=== PATIENT | male | born 1965 | race African-American/Black ===

== ENCOUNTER 2018-09-20 09:34 | Inpatient (IN) | payer BC, OTHER ==
[2018-09-20 10:06] VITALS: BMI 26.4
--- NOTE | 2018-09-20 10:08 | HP ---
COWS - Scale Resting Pulse: 0= [place] 80 or Below Sweatin= Chills/Flushing Restless Observation: 1= Difficult to Sit Still Pupil Size: 1= Pupils >than Normal Bone or Joint Aches: 2= Severe Diffuse Aches Runny Nose/ Eye Tearin= Runny Nose/Eyes GI Upset > 30mins: 2= Nausea/Diarrhea Tremor Observation: 2= Slight Tremor Visible Yawning Observation: 1= 1-2x During Session Anxiety or Irritability: 2=Irritable/Anxious Goose Flesh Skin: 0=Smooth Skin COWS Score: 14 CIWA Score Nausea/Vomitin Muscle Tremors: 2 Anxiety: 2 Agitation: 2 Paroxysmal Sweats: 1-Minimal Palms Moist Orientation: 0-Oriented Tacttile Disturbances: 1-Very Mild Itch/Numbness Auditory Disturbances: 1-Very Mild Visual Disturbances: 1-Very Mild Sensitivity Headache: 2-Mild CIWA-Ar Total Score: 14 - Admission Criteria [facility] Guidelines: Admission for Medically Managed Detox: Requires at least one of the followin. CIWA greater than 12 2. Seizures within the past 24 hours 3. Delirium tremens within the past 24 hours 4. Hallucinations within the past 24 hours 5. Acute intervention needed for co occurring medical disorder 6. Acute intervention needed for co occurring psychiatric disorder 7. Severe withdrawal that cannot be handled at a lower level of care (continued vomiting, continued diarrhea, abnormal vital signs) requiring intravenous medication and/or fluids 8. Patient presents the following: CIWA greater than 12 Admission Criteria Met: Admission criteria met Admission ROS S - HPI Chief Complaint: i need help to clean up my left from drug and alcohol Allergies/Adverse Reactions: Allergies Allergy/AdvReac Type Severity Reaction Status Date / Time No Known Allergies Allergy Verified 09/20/18 09:57 History of Present Illness: this 53 years old male with heroin,alcohol dependence,seeking detox,withdrawal symptom,never been in detox before syncope alcohol related weight loss nicotine dependence hypertension,not on medication stated need help to change his life Exam Limitations: No Limitations - Ebola screening Have you traveled outside of the country in the last 21 days: No Have you had contact with anyone from an Ebola affected area: No Do you have a fever: No - Review of Systems Constitutional: Chills, Loss of Appetite, Malaise, Night Sweats, Changes in sleep, Weakness EENT: reports: Tearing, Nose Congestion Respiratory: reports: No Symptoms reported Cardiac: reports: Palpitations GI: reports: Nausea, Poor Appetite, Abdominal cramping : reports: No Symptoms Reported Musculoskeletal: reports: Back Pain, Joint Pain, Muscle Pain, Joint Stiffness Integumentary: reports: Dryness Endocrine: reports: No Symptoms Reported Hematology: reports: No Symptoms Reported Psychiatric: reports: No Sypmtoms Reported, Judgement Intact, Mood/Affect Appropiate, Orientated x3 Patient History - Patient Medical History Hx Anemia: No Hx Asthma: No Hx Chronic Obstructive Pulmonary Disease (COPD): No Hx Cancer: No Hx Cardiac Disorders: No Hx Congestive Heart Failure: No Hx Hypertension: No Hx Hypercholesterolemia: No Hx Pacemaker: No HX Cerebrovascular Accident: No Hx Seizures: No Hx Dementia: No Hx Diabetes: No Hx Gastrointestinal Disorders: No Hx Liver Disease: No Hx Genitourinary Disorders: No Hx Sexually Transmitted Disorders: No Hx Renal Disease (ESRD): No Hx Thyroid Disease: No Hx Human Immunodeficiency Virus (HIV): No (last 06/24 negative) Hx Hepatitis C: No Hx Depression: No Hx Suicide Attempt: No Hx Bipolar Disorder: No Hx Schizophrenia: No Other Medical History: no suicidal,no homicidal - Patient Surgical History Past Surgical History: No - PPD History Previous Implant?: Yes Documented Results: Negative w/o proof Implanted On Prior [facility] Admission?: No PPD to be Administered?: Yes - Smoking Cessation Smoking history: Current every day smoker Have you smoked in the past 12 months: Yes Aproximately how many cigarettes per day: 5 Cigars Per Day: 0 Hx Chewing Tobacco Use: No Initiated information on smoking cessation: Yes 'Breaking Loose' booklet given: 09/20/18 - Substance & Tx. History Hx Alcohol Use: Yes Hx Substance Use: Yes Substance Use Type: Alcohol, Cocaine, Heroin Hx Substance Use Treatment: No - Substances Abused Heroin Route: Inhalation Frequency: Daily Amount used: 8 BAGS DAILY Age of first use: 45 Date of Last Use: 09/19/18 Crack Route: Smoking Frequency: Daily Amount used: 1 GRAM Age of first use: 45 Date of Last Use: 09/19/18 Alcohol Route: Oral Frequency: Daily Amount used: 2 CANS OF BEER (24 OUNCES) Age of first use: 15 Date of Last Use: 09/19/18 Family Disease History - Family Disease History Family Disease History: Other: Father (dsa,alcohol,), Mother (dsa, alcohol,), Sister (dsa,alcohol) Admission Physical Exam [facility] - Vital Signs Vital Signs: Vital Signs Temperature 98 F 09/20/18 10:04 Pulse Rate 70 09/20/18 10:04 Respiratory Rate 18 09/20/18 10:04 Blood Pressure 150/94 09/20/18 10:04 O2 Sat by Pulse Oximetry (%) - Physical General Appearance: Yes: Moderate Distress, Tremorous, Irritable, Sweating, Anxious HEENTM: Yes: Normal ENT Inspection, EVY, Pharynx Normal Respiratory: Yes: Lungs Clear, Normal Breath Sounds, No Respiratory Distress Neck: Yes: Within Normal Limits, Supple, Trachea in good position Breast: Yes: Within Normal Limits Cardiology: Yes: Within Normal Limits, Regular Rhythm, Regular Rate, S1, S2 Abdominal: Yes: Within Normal Limits, Normal Bowel Sounds, Non Tender, Flat, Soft Genitourinary: Yes: Within Normal Limits Back: Yes: Muscle Spasm Musculoskeletal: Yes: full range of Motion, Back pain, Joint Stiffness, Muscle Pain Extremities: Yes: Normal Range of Motion, Tremors Neurological: Yes: Within Normal Limits, 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, Fully Oriented, Alert, Motor Strength 5/5 Integumentary: Yes: Dry Lymphatic: Yes: Within Normal Limits - Diagnostic (1) Opioid dependence with withdrawal Current Visit: Yes Status: Acute (2) Alcohol dependence with uncomplicated withdrawal Current Visit: Yes Status: Acute (3) Cocaine dependence Current Visit: Yes Status: Acute (4) Weight loss Current Visit: Yes Status: Acute (5) Nicotine dependence Current Visit: Yes Status: Acute Cleared for Admission [facility] - Detox or Rehab [facility] Level of Care: Medically Managed Detox Regimen/Protocol: Methadone/Librium
[2018-09-20] MEDS ORDERED: chlordiazePOXIDE HCL 25 MG CAPSULE PO PRN (10:21)
[2018-09-20] MEDS ORDERED: MENTHOL/PHENOL 1 EACH UD MM PRN (10:21)
[2018-09-20] MEDS ORDERED: ACETAMINOPHEN 325 MG TABLET (FP) PO PRN (10:21)
[2018-09-20] MEDS ORDERED: P-EPHED 60MG/TRIPROLIDI 2.5MG TABLET PO PRN (10:21)
[2018-09-20] MEDS ORDERED: MAGNESIUM CITRATE 300 ML BOTTLE PO PRN (10:21)
[2018-09-20] MEDS ORDERED: guaiFENesin/D-METHORPHAN HB 10 ML UNIT-DOSE CUPS PO PRN (10:21)
[2018-09-20] MEDS ORDERED: IBUPROFEN 400 MG TABLET (FP) PO PRN (10:21)
[2018-09-20] MEDS ORDERED: MAGNESIUM HYDROX 2400MG/30ML ORAL SUSPENSION 30 ML CUP PO PRN (10:21)
[2018-09-20] MEDS ORDERED: LOPERAMIDE HCL 2 MG CAPSULE PO PRN (10:21)
[2018-09-20] MEDS ORDERED: MAG HYDROX/AL HYDROX/SIMETH 30 ML UNIT-DOSE CUP PO PRN (10:21)
[2018-09-20] MEDS ORDERED: METHADONE HCL 10 MG TABLET (FOR DETOX USE ONLY) PO ONE ×2 (10:55→23:00)
[2018-09-20] MEDS: chlordiazePOXIDE HCL 25 MG CAPSULE PO SCH ×2 (17:29→22:25)
[2018-09-20 17:36] LABS: URINE APPEARANCE CLEAR; URINE BILIRUBIN NEGATIVE (<2.0 mg/dL); URINE COLOR YELLOW; URINE GLUCOSE (UA) NEGATIVE (NEGATIVE); URINE KETONE NEGATIVE (NEGATIVE); URINE LEUK ESTERASE NEGATIVE (NEGATIVE); URINE NITRITE NEGATIVE (NEGATIVE); URINE PROTEIN NEGATIVE (NEGATIVE)
[2018-09-20] MEDS ORDERED: MELATONIN 5 MG TABLETS PO PRN (22:00)
[2018-09-20] MEDS: cloNIDine HCL 0.1 MG TABLET PO SCH (22:26)
[2018-09-20] MEDS: THIAMINE HCL 100 MG TABLET (FP) PO SCH (22:26)
[2018-09-20] MEDS: CYCLOBENZAPRINE HCL 10 MG TABLET (FP) PO PRN (22:26)
[2018-09-21] MEDS: chlordiazePOXIDE HCL 25 MG CAPSULE PO SCH ×4 (06:34→22:31)
[2018-09-21] MEDS ORDERED: METHADONE HCL 10 MG TABLET (FOR DETOX USE ONLY) PO SCH (10:00)
[2018-09-21] MEDS: PRENATAL VITAMINS W/ FOLIC ACID TABLET (FP) PO SCH (10:09)
[2018-09-21] MEDS: cloNIDine HCL 0.1 MG TABLET PO SCH ×2 (10:10→22:31)
[2018-09-21 10:15] LABS: HEMATOCRIT 42.8 % (35.4-49); MCH 30.4 pg (25.7-33.7); MCHC 32.7 g/dl (32.0-35.9); MEAN CELL VOLUME 92.8 fl (80-96); MEAN PLT VOLUME 8.5 fl (7.5-11.1); PLATELET COUNT 266 K/MM3 (134-434); RBC 4.61 M/mm3 (4.00-5.60); RDW 13.8 % (11.9-15.9); WHITE BLOOD COUNT 4.8 K/mm3 (4.0-10.0)
[2018-09-21 10:59] LABS: ALBUMIN 3.5 g/dl (3.4-5.0); ALK PHOS 61 U/L (45-117); ANION GAP 10 MMOL/L (8-16); BILIRUBIN,TOTAL 0.9 mg/dL (0.2-1); BLOOD UREA NITROGEN 12 mg/dL (7-18); CALCIUM 8.6 mg/dL (8.5-10.1); CHLORIDE 107 mmol/L (98-107); CO2 26 mmol/L (21-32); CREATININE 0.8 mg/dL (0.55-1.3); GLUCOSE,RANDOM 106 mg/dL (74-106); POTASSIUM 3.9 mmol/L (3.5-5.1); SGOT/AST 22 U/L (15-37); SGPT/ALT 62 U/L (13-61); SODIUM 144 mmol/L (136-145); TOT PROT 7.1 g/dl (6.4-8.2)
--- NOTE | 2018-09-21 11:56 | EKG ---
Test Reason : Blood Pressure : / mmHG Vent. Rate : 071 BPM Atrial Rate : 071 BPM P-R Int : 162 ms QRS Dur : 118 ms QT Int : 384 ms P-R-T Axes : 065 063 039 degrees QTc Int : 417 ms NORMAL SINUS RHYTHM NON-SPECIFIC INTRA-VENTRICULAR CONDUCTION DELAY BORDERLINE ECG NO PREVIOUS ECGS AVAILABLE Confirmed by SHEREEN MILIAN MD ([id number]) on 09/21/2018 11:55:54 AM Referred By: Confirmed By:SHEREEN MILIAN MD
--- NOTE | 2018-09-21 12:12 | PN ---
[facility] CIWA - CIWA Score Nausea/Vomitin Muscle Tremors: 4-Moderate,w/Arms Extend Anxiety: 4-Mod. Anxious/Guarded Agitation: 4-Moderately Restless Paroxysmal Sweats: 3 Orientation: 0-Oriented Tacttile Disturbances: 0-None Auditory Disturbances: 0-None Visual Disturbances: 0-None Headache: 0-None Present CIWA-Ar Total Score: 17 S COWS - Scale Resting Pulse: 1= [place] 81-100 Sweatin= Chills/Flushing Restless Observation: 3= Extraneous Movement Pupil Size: 0= Normal to Room Light Bone or Joint Aches: 2= Severe Diffuse Aches Runny Nose/ Eye Tearin= Runny Nose/Eyes GI Upset > 30mins: 2= Nausea/Diarrhea Tremor Observation of Outstretched Hands: 2= Slight Tremor Visible Yawning Observation: 1= 1-2x During Session Anxiety or Irritability: 2=Irritable/Anxious Goose Flesh Skin: 0=Smooth Skin COWS Score: 16 [facility] Progress Note (SOAP) Subjective: Sweating, body ache, diarrhea, chills, interrupted sleep Objective: 09/21/18 12:11 Last Vital Signs Temp Pulse Resp BP Pulse Ox 97.2 F L 100 H 18 114/76 09/21/18 09:11 09/21/18 09:11 09/21/18 09:11 09/21/18 09:11 Laboratory Tests 09/20/18 09/21/18 09/21/18 15:43 05:50 05:50 WBC 4.8 RBC 4.61 Hgb 14.0 Hct 42.8 MCV 92.8 MCH 30.4 MCHC 32.7 RDW 13.8 Plt Count 266 MPV 8.5 Sodium 144 Potassium 3.9 Chloride 107 Carbon Dioxide 26 Anion Gap 10 BUN 12 Creatinine 0.8 Creat Clearance w eGFR > 60 Random Glucose 106 Calcium 8.6 Total Bilirubin 0.9 AST 22 ALT 62 H Alkaline Phosphatase 61 Total Protein 7.1 Albumin 3.5 Urine Color Yellow Urine Appearance Clear Urine pH 7.0 Ur Specific [place] 1.025 Urine Protein Negative Urine Glucose (UA) Negative Urine Ketones Negative Urine Blood Negative Urine Nitrite Negative Urine Bilirubin Negative Urine Urobilinogen 2.0 Ur Leukocyte Esterase Negative RPR Titer 09/21/18 05:50 WBC RBC Hgb Hct MCV MCH MCHC RDW Plt Count MPV Sodium Potassium Chloride Carbon Dioxide Anion Gap BUN Creatinine Creat Clearance w eGFR Random Glucose Calcium Total Bilirubin AST ALT Alkaline Phosphatase Total Protein Albumin Urine Color Urine Appearance Urine pH Ur Specific [place] Urine Protein Urine Glucose (UA) Urine Ketones Urine Blood Urine Nitrite Urine Bilirubin Urine Urobilinogen Ur Leukocyte Esterase RPR Titer Nonreactive Labs reviewed Assessment: 09/21/18 12:12 Withdrawal symptoms Plan: Continue detox Encouraged PO water intake
[2018-09-21] MEDS: THIAMINE HCL 100 MG TABLET (FP) PO SCH (22:31)
[2018-09-22] MEDS: chlordiazePOXIDE HCL 25 MG CAPSULE PO SCH ×2 (05:39→10:13)
[2018-09-22] MEDS: METHADONE HCL 5 MG TABLET (FOR DETOX USE ONLY) PO SCH (10:12)
[2018-09-22] MEDS: cloNIDine HCL 0.1 MG TABLET PO SCH ×2 (10:13→22:15)
[2018-09-22] MEDS: PRENATAL VITAMINS W/ FOLIC ACID TABLET (FP) PO SCH (10:13)
--- NOTE | 2018-09-22 11:56 | PN ---
S CIWA - CIWA Score Nausea/Vomitin-Mild Nausea/No Vomiting Muscle Tremors: 4-Moderate,w/Arms Extend Anxiety: 3 Agitation: 3 Paroxysmal Sweats: 3 Orientation: 0-Oriented Tacttile Disturbances: 0-None Auditory Disturbances: 0-None Visual Disturbances: 0-None Headache: 0-None Present CIWA-Ar Total Score: 14 [facility] COWS - Scale Resting Pulse: 1= [place] 81-100 Sweatin= Chills/Flushing Restless Observation: 3= Extraneous Movement Pupil Size: 0= Normal to Room Light Bone or Joint Aches: 1= Mild Discomfort Runny Nose/ Eye Tearin= None GI Upset > 30mins: 2= Nausea/Diarrhea Tremor Observation of Outstretched Hands: 2= Slight Tremor Visible Yawning Observation: 1= 1-2x During Session Anxiety or Irritability: 2=Irritable/Anxious Goose Flesh Skin: 0=Smooth Skin COWS Score: 13 S Progress Note (SOAP) Subjective: Chills, stomach cramps, sweating, tremor Objective: 09/22/18 11:49 Last Vital Signs Temp Pulse Resp BP Pulse Ox 97.9 F 83 20 97/63 09/22/18 09:58 09/22/18 09:58 09/22/18 09:58 09/22/18 09:58 Hypotension noted Laboratory Tests 09/20/18 09/21/18 09/21/18 15:43 05:50 05:50 WBC 4.8 RBC 4.61 Hgb 14.0 Hct 42.8 MCV 92.8 MCH 30.4 MCHC 32.7 RDW 13.8 Plt Count 266 MPV 8.5 Sodium 144 Potassium 3.9 Chloride 107 Carbon Dioxide 26 Anion Gap 10 BUN 12 Creatinine 0.8 Creat Clearance w eGFR > 60 Random Glucose 106 Calcium 8.6 Total Bilirubin 0.9 AST 22 ALT 62 H Alkaline Phosphatase 61 Total Protein 7.1 Albumin 3.5 Urine Color Yellow Urine Appearance Clear Urine pH 7.0 Ur Specific [place] 1.025 Urine Protein Negative Urine Glucose (UA) Negative Urine Ketones Negative Urine Blood Negative Urine Nitrite Negative Urine Bilirubin Negative Urine Urobilinogen 2.0 Ur Leukocyte Esterase Negative RPR Titer 09/21/18 05:50 WBC RBC Hgb Hct MCV MCH MCHC RDW Plt Count MPV Sodium Potassium Chloride Carbon Dioxide Anion Gap BUN Creatinine Creat Clearance w eGFR Random Glucose Calcium Total Bilirubin AST ALT Alkaline Phosphatase Total Protein Albumin Urine Color Urine Appearance Urine pH Ur Specific [place] Urine Protein Urine Glucose (UA) Urine Ketones Urine Blood Urine Nitrite Urine Bilirubin Urine Urobilinogen Ur Leukocyte Esterase RPR Titer Nonreactive Labs reviewed Assessment: 09/22/18 11:50 Withdrawal symptoms Noted with hypotension Plan: Continue detox Hypotension: asymptomatic, encouraged PO water intake
[2018-09-22] MEDS: chlordiazePOXIDE 5 MG CAPSULE PO SCH ×2 (17:14→22:15)
[2018-09-22] MEDS: THIAMINE HCL 100 MG TABLET (FP) PO SCH (22:15)
[2018-09-23] MEDS: chlordiazePOXIDE 5 MG CAPSULE PO SCH ×2 (05:42→10:13)
[2018-09-23] MEDS: cloNIDine HCL 0.1 MG TABLET PO SCH ×2 (10:13→22:20)
[2018-09-23] MEDS: PRENATAL VITAMINS W/ FOLIC ACID TABLET (FP) PO SCH (10:13)
[2018-09-23] MEDS: METHADONE HCL 5 MG TABLET (FOR DETOX USE ONLY) PO SCH (10:13)
--- NOTE | 2018-09-23 11:53 | PN ---
[facility] Progress Note Note: PATIENT CONTINUES WITH DETOX REGIMEN. STATES HE FEELS BETTER. C/O MILD ANXIETY. Vital Signs Temperature 96.8 F L 09/23/18 09:18 Pulse Rate 94 H 09/23/18 09:18 Respiratory Rate 18 09/23/18 09:18 Blood Pressure 112/68 09/23/18 09:18 O2 Sat by Pulse Oximetry (%) Laboratory Tests 09/20/18 09/21/18 09/21/18 15:43 05:50 05:50 WBC 4.8 RBC 4.61 Hgb 14.0 Hct 42.8 MCV 92.8 MCH 30.4 MCHC 32.7 RDW 13.8 Plt Count 266 MPV 8.5 Sodium 144 Potassium 3.9 Chloride 107 Carbon Dioxide 26 Anion Gap 10 BUN 12 Creatinine 0.8 Creat Clearance w eGFR > 60 Random Glucose 106 Calcium 8.6 Total Bilirubin 0.9 AST 22 ALT 62 H Alkaline Phosphatase 61 Total Protein 7.1 Albumin 3.5 Urine Color Yellow Urine Appearance Clear Urine pH 7.0 Ur Specific [place] 1.025 Urine Protein Negative Urine Glucose (UA) Negative Urine Ketones Negative Urine Blood Negative Urine Nitrite Negative Urine Bilirubin Negative Urine Urobilinogen 2.0 Ur Leukocyte Esterase Negative RPR Titer 09/21/18 05:50 WBC RBC Hgb Hct MCV MCH MCHC RDW Plt Count MPV Sodium Potassium Chloride Carbon Dioxide Anion Gap BUN Creatinine Creat Clearance w eGFR Random Glucose Calcium Total Bilirubin AST ALT Alkaline Phosphatase Total Protein Albumin Urine Color Urine Appearance Urine pH Ur Specific [place] Urine Protein Urine Glucose (UA) Urine Ketones Urine Blood Urine Nitrite Urine Bilirubin Urine Urobilinogen Ur Leukocyte Esterase RPR Titer Nonreactive PE: ALERT AND ORIENTED X 3 SKIN WARM AND DRY EXT FULL ROM AMB AD JAVIER A/P: WITHDRAWAL SX CONTINUE DETOX REGIMEN ENCOURAGE ORAL FLUIDS CONTINUE TO MONITOR
[2018-09-23] MEDS: chlordiazePOXIDE HCL 10 MG CAPSULE PO SCH ×2 (17:35→22:20)
[2018-09-23] MEDS: THIAMINE HCL 100 MG TABLET (FP) PO SCH (22:20)
[2018-09-23] MEDS: CYCLOBENZAPRINE HCL 10 MG TABLET (FP) PO PRN (22:23)
[2018-09-24] MEDS: chlordiazePOXIDE HCL 10 MG CAPSULE PO SCH ×2 (05:27→10:11)
[2018-09-24] MEDS ORDERED: METHADONE HCL 10 MG TABLET (FOR DETOX USE ONLY) PO SCH (10:00)
[2018-09-24] MEDS: cloNIDine HCL 0.1 MG TABLET PO SCH ×2 (10:11→22:16)
[2018-09-24] MEDS: PRENATAL VITAMINS W/ FOLIC ACID TABLET (FP) PO SCH (10:11)
--- NOTE | 2018-09-24 15:22 | PN ---
[facility] Progress Note (SOAP) Subjective: Sweating, body ache, nausea, legs hurting Objective: 09/24/18 15:18 Last Vital Signs Temp Pulse Resp BP Pulse Ox 98.3 F 85 18 121/76 09/24/18 13:12 09/24/18 13:12 09/24/18 13:12 09/24/18 13:12 Laboratory Tests 09/20/18 09/21/18 09/21/18 15:43 05:50 05:50 WBC 4.8 RBC 4.61 Hgb 14.0 Hct 42.8 MCV 92.8 MCH 30.4 MCHC 32.7 RDW 13.8 Plt Count 266 MPV 8.5 Sodium 144 Potassium 3.9 Chloride 107 Carbon Dioxide 26 Anion Gap 10 BUN 12 Creatinine 0.8 Creat Clearance w eGFR > 60 Random Glucose 106 Calcium 8.6 Total Bilirubin 0.9 AST 22 ALT 62 H Alkaline Phosphatase 61 Total Protein 7.1 Albumin 3.5 Urine Color Yellow Urine Appearance Clear Urine pH 7.0 Ur Specific [place] 1.025 Urine Protein Negative Urine Glucose (UA) Negative Urine Ketones Negative Urine Blood Negative Urine Nitrite Negative Urine Bilirubin Negative Urine Urobilinogen 2.0 Ur Leukocyte Esterase Negative RPR Titer 09/21/18 05:50 WBC RBC Hgb Hct MCV MCH MCHC RDW Plt Count MPV Sodium Potassium Chloride Carbon Dioxide Anion Gap BUN Creatinine Creat Clearance w eGFR Random Glucose Calcium Total Bilirubin AST ALT Alkaline Phosphatase Total Protein Albumin Urine Color Urine Appearance Urine pH Ur Specific [place] Urine Protein Urine Glucose (UA) Urine Ketones Urine Blood Urine Nitrite Urine Bilirubin Urine Urobilinogen Ur Leukocyte Esterase RPR Titer Nonreactive Labs reviewed Assessment: 09/24/18 15:18 Withdrawal symptoms Plan: Continue detox Encouraged PO water intake
[2018-09-24] MEDS: hydrOXYzine PAMOATE 25 MG CAPSULE (FP) PO PRN ×2 (17:44→22:16)
[2018-09-24] MEDS: THIAMINE HCL 100 MG TABLET (FP) PO SCH (22:16)
[2018-09-24] MEDS: CYCLOBENZAPRINE HCL 10 MG TABLET (FP) PO PRN (22:16)
[2018-09-25] MEDS ORDERED: METHADONE HCL 5 MG TABLET (FOR DETOX USE ONLY) PO SCH (06:00)
[2018-09-25 09:04] VITALS: BP 112/74; PULSE 92; TEMP 97.8
[2018-09-25] MEDS: PRENATAL VITAMINS W/ FOLIC ACID TABLET (FP) PO SCH (09:34)
[2018-09-25] MEDS: cloNIDine HCL 0.1 MG TABLET PO SCH (09:34)
--- NOTE | 2018-09-25 11:42 | DS ---
[facility] Detox Discharge Summary Admission Date: 09/20/18 Discharge Date: 09/25/18 - History Present History: Alcohol Dependence, Opioid Dependence Additional Comments: 53 years old male admitted on 09/20/18 for alcohol and opiate withdrawal sx completed detox regimen [facility] - Physical Exam Results Vital Signs: Vital Signs Temperature 97.8 F 09/25/18 09:03 Pulse Rate 92 H 09/25/18 09:03 Respiratory Rate 20 09/25/18 09:03 Blood Pressure 112/74 09/25/18 09:03 O2 Sat by Pulse Oximetry (%) Pertinent Admission Physical Exam Findings: alcohol and opiate withdrawal sx Vital Signs Temperature 97.8 F 09/25/18 09:03 Pulse Rate 92 H 09/25/18 09:03 Respiratory Rate 20 09/25/18 09:03 Blood Pressure 112/74 09/25/18 09:03 O2 Sat by Pulse Oximetry (%) Laboratory Last Values WBC 4.8 K/mm3 (4.0-10.0) 09/21/18 05:50 RBC 4.61 M/mm3 (4.00-5.60) 09/21/18 05:50 Hgb 14.0 GM/dL (11.7-16.9) 09/21/18 05:50 Hct 42.8 % (35.4-49) 09/21/18 05:50 MCV 92.8 fl (80-96) 09/21/18 05:50 MCH 30.4 pg (25.7-33.7) 09/21/18 05:50 MCHC 32.7 g/dl (32.0-35.9) 09/21/18 05:50 RDW 13.8 % (11.9-15.9) 09/21/18 05:50 Plt Count 266 K/MM3 (134-434) 09/21/18 05:50 MPV 8.5 fl (7.5-11.1) 09/21/18 05:50 Sodium 144 mmol/L (136-145) 09/21/18 05:50 Potassium 3.9 mmol/L (3.5-5.1) 09/21/18 05:50 Chloride 107 mmol/L (98-107) 09/21/18 05:50 Carbon Dioxide 26 mmol/L (21-32) 09/21/18 05:50 Anion Gap 10 MMOL/L (8-16) 09/21/18 05:50 BUN 12 mg/dL (7-18) 09/21/18 05:50 Creatinine 0.8 mg/dL (0.55-1.3) 09/21/18 05:50 Creat Clearance w eGFR > 60 (>60) 09/21/18 05:50 Random Glucose 106 mg/dL (74-106) 09/21/18 05:50 Calcium 8.6 mg/dL (8.5-10.1) 09/21/18 05:50 Total Bilirubin 0.9 mg/dL (0.2-1) 09/21/18 05:50 AST 22 U/L (15-37) 09/21/18 05:50 ALT 62 U/L (13-61) H 09/21/18 05:50 Alkaline Phosphatase 61 U/L (45-117) 09/21/18 05:50 Total Protein 7.1 g/dl (6.4-8.2) 09/21/18 05:50 Albumin 3.5 g/dl (3.4-5.0) 09/21/18 05:50 Urine Color Yellow 09/20/18 15:43 Urine Appearance Clear 09/20/18 15:43 Urine pH 7.0 (5.0-8.0) 09/20/18 15:43 Ur Specific [place] 1.025 (1.010-1.035) 09/20/18 15:43 Urine Protein Negative (NEGATIVE) 09/20/18 15:43 Urine Glucose (UA) Negative (NEGATIVE) 09/20/18 15:43 Urine Ketones Negative (NEGATIVE) 09/20/18 15:43 Urine Blood Negative (NEGATIVE) 09/20/18 15:43 Urine Nitrite Negative (NEGATIVE) 09/20/18 15:43 Urine Bilirubin Negative (<2.0 mg/dL) 09/20/18 15:43 Urine Urobilinogen 2.0 mg/dL (0.2-1.0) 09/20/18 15:43 Ur Leukocyte Esterase Negative (NEGATIVE) 09/20/18 15:43 RPR Titer Nonreactive (NONREACTIVE) 09/21/18 05:50 lab noted - Treatment Hospital Course: Detox Protocol Followed, Detoxed Safely, Responded well, Discharged Condition Good, Rehab Referral Accepted Patient has Accepted a Rehab Referral to: [facility] - Medication Discharge Medications: Ambulatory Orders NK [No Known Home Medication] 09/20/18 - Diagnosis (1) Alcohol dependence with uncomplicated withdrawal Status: Acute (2) Opioid dependence with withdrawal Status: Acute (3) Nicotine dependence Status: Acute Qualifiers: Nicotine product type: cigarettes Substance use status: in withdrawal Qualified Code(s): F17.213 - Nicotine dependence, cigarettes, with withdrawal - AMA Did Patient Leave Against Medical Advice: No
== END 2018-09-25 09:05 | disposition home or self-care (01) | DRG 897 ==
LOC: YASAS 09:34 → Y3N 10:34
PROC: HZ2ZZZZ Detoxification Services for Substance Abuse Treatment (ICD-10-PCS; principal; 2018-09-20)
DX: F11.23 Opioid dependence with withdrawal (principal); F14.20 Cocaine dependence, uncomplicated; F10.230 Alcohol dependence with withdrawal, uncomplicated; F17.210 Nicotine dependence, cigarettes, uncomplicated; R63.4 Abnormal weight loss; Z68.26 Body mass index [BMI] 26.0-26.9, adult
CPT/HCPCS: 36415; 80053; 81003; 85027; 86593; 93005; 93010; J0735